=== PATIENT | male | born 1930 | race Caucasian/White ===

== ENCOUNTER 2018-04-05 05:32 | Day surgery (SDC) | payer OTHER, MEDICARE ==
[2018-04-05] MEDS ORDERED: LR 1,000 ML IV ONE (05:43)
[2018-04-05] MEDS ORDERED: OXYMETAZOLINE 30 ML NASAL SPRAY EACHNARE PRN (06:08)
[2018-04-05] MEDS ORDERED: AMPICILLIN/SULBACTAM 3 GM in NS 100 ML IV ONE (06:15)
[2018-04-05] MEDS ORDERED: OXYMETAZOLINE 30 ML NASAL SPRAY ONE (06:25)
[2018-04-05] MEDS ORDERED: BACITRACIN ZINC 14.2 GM OINTTUBE TP ONE (06:25)
[2018-04-05] MEDS ORDERED: BUPIVACAINE 0.5% 30 ML SDV ONE (06:25)
[2018-04-05] MEDS ORDERED: CHLORHEXIDINE GLUCONATE 15 ML UDL ONE (06:26)
[2018-04-05] MEDS ORDERED: LIDO/EPI 2% **for epidural** 20 ML SDV ONE (06:26)
[2018-04-05] MEDS ORDERED: EPINEPHrine 1 MG/ML INJ ONE (06:26)
[2018-04-05] MEDS ORDERED: MINERAL OIL 10 ML VIAL ONE (06:26)
[2018-04-05 06:32] LABS: PLATELET COUNT 212 10^3/uL (150-400)
--- NOTE | 2018-04-05 06:58 | PDHPUP ---
History & Physical Update H&P update statement: This history and physical update is based on an assessment of the patient which was completed after admission or registration (within 24 hours), but prior to the surgery/procedure. H&P update: no change in patient's condition since H&P completed (no change)
--- NOTE | 2018-04-05 07:06 | PDANEPAE ---
ANE History of Present Illness Patient presents for surgery ANE Past Medical History - Cardiovascular History Hx Hypertension: Yes Hx Arrhythmias: No Hx Chest Pain: No Hx Coronary Artery / Peripheral Vascular Disease: No Hx CHF / Valvular Disease: No Hx Palpitations: No - Pulmonary History Hx COPD: No Hx Asthma/Reactive Airway Disease: No Hx Recent Upper Respiratory Infection: No Hx Oxygen in Use at Home: No Hx Sleep Apnea: No Sleep Apnea Screening Result - Last Documented: Positive - Neurologic History Hx Cerebrovascular Accident: No Hx Seizures: No Hx Dementia: No - Endocrine History Hx Diabetes: No - Renal History Hx Renal Disorders: Yes Renal History Comment: BPH - Liver History Hx Hepatic Disorders: No - Neurological & Psychiatric Hx Hx Neurological and Psychiatric Disorders: No - Cancer History Hx Cancer: Yes Cancer History Comment: SKIN - Congenital Disorder History Hx Congenital Disorders: No - GI History Gastrointestinal History Comment: HX OF POLYPS - Other Health History Other Health History: MACULAR DEGENERATION - Chronic Pain History Chronic Pain: No - Surgical History Prior Surgeries: GISSELL CATARACT 11/2017. PARTIAL COLECTOMY WITH APPY. T & A. MOH 'S PROCEDURE LT SHLDR ANE Review of Systems Review of Systems: - Exercise capacity METS (RN): 5 METS ANE Patient History - Allergies Allergies/Adverse Reactions: No Allergies [NKDA] Allergy (Verified 08/16/16 00:51) - Home Medications Home medications: home medication list seen and reviewed Home Medications: Furosemide [Lasix 20 MG (*)] 20 mg PO DAILY06 09/01/12 [Last Taken 04/04/18] Metoprolol Tartrate [Lopressor 50 mg (*)] PO BID 09/01/12 [Last Taken 04/05/18] Simvastatin [Zocor 20 mg] 20 mg PO HS 09/01/12 [Last Taken 04/04/18] Finasteride HS 03/17/18 [Last Taken 04/04/18] - NPO status NPO Status: no food or drink >8 hours NPO Since - Liquids (Date): 04/05/18 NPO Since - Liquids (Time): 04:30 NPO Since - Solids (Date): 04/04/18 NPO Since - Solids (Time): 19:00 - Smoking Hx Smoking Status: Former smoker ANE Labs/Vital Signs - Labs Result Diagrams: 04/05/18 06:22 - Vital Signs Blood Pressure: 157/84 Heart Rate: 76 Respiratory Rate: 18 O2 Sat (%): 95 Height: 175.26 cm Weight: 70.307 kg ANE Physical Exam - Airway Neck exam: decreased ROM Mallampati Score: Class 1 - Pulmonary Pulmonary: no respiratory distress - Cardiovascular Cardiovascular: regular rate and rhythym - ASA Status ASA Status: II ANE Anesthesia Plan Anesthesia Plan: general endotracheal anesthesia (RBA discussed)
[2018-04-05] MEDS ORDERED: ONDANSETRON 4 MG/2 ML VIAL ONE (07:14)
[2018-04-05] MEDS ORDERED: DEXAMETHASONE 4 MG/ML VIAL ONE (07:14)
[2018-04-05] MEDS ORDERED: PROPOFOL 200 MG/20 ML VIAL ONE ×2 (07:14→08:22)
[2018-04-05] MEDS ORDERED: fentaNYL 100 MCG/2 ML INJ ONE ×2 (07:14→07:45)
[2018-04-05] MEDS ORDERED: LIDOCAINE 2% 5 ML SDV ONE ×2 (07:14)
--- NOTE | 2018-04-05 07:24 | POSTOPPROG ---
Post Op Note Date of Operation: 04/05/18 Surgeon: Robin Lyles Automatic Gluing Machine Operator: none Anesthesiologist: Jonah Danielson Anesthesia: GET(General Endotracheal) (nasal intubation) Pre-op Diagnosis: Palatal Odontogenic keratocyst Post-op Diagnosis: Same and preoperative diagnosis Indication: removal of benign maxillary lesion Procedure: Enucleation and peripheral curragate of a palatal [place] with bone graft Findings: none Inf/Abcess present in the surg proc area at time of surgery?: No EBL: Minimal Total fluids administered: 1L Complications: none Specimen(s): Maxillary palatal cyst sent for biopsy
[2018-04-05] MEDS ORDERED: METHYLENE BLUE 0.5% 50 MG/10 ML AMP ONE (07:25)
[2018-04-05] MEDS ORDERED: PHENYLEPHRINE HCL 100 MCG/ML SYR ONE (07:58)
[2018-04-05] MEDS: BACITRACIN 50,000 UNITS/10 ML SYR IRR ONE ×2 (08:09→09:43)
[2018-04-05] MEDS: POLYMYXIN B SULFATE 500,000 UNIT/10 ML SYR IRR ONE ×2 (08:10→09:42)
[2018-04-05] MEDS ORDERED: epHEDrine SULFATE 10 MG/ML SYR ONE (08:22)
[2018-04-05] MEDS ORDERED: BACITRACIN 50,000 UNITS/10 ML SYR IRR ONE (09:25)
[2018-04-05] MEDS ORDERED: POLYMYXIN B SULFATE 500,000 UNIT/10 ML SYR IRR ONE (09:25)
[2018-04-05] MEDS ORDERED: LR 500 ML IV PRN (09:38)
[2018-04-05] MEDS ORDERED: NALOXONE HCL 0.4 MG/ML INJ IVP PRN (09:38)
[2018-04-05] MEDS ORDERED: ONDANSETRON 4 MG/2 ML VIAL IVP PRN (09:38)
[2018-04-05] MEDS ORDERED: fentaNYL 100 MCG/2 ML INJ IVP PRN (09:38)
--- NOTE | 2018-04-05 10:06 | POSTANESTH ---
Post Anesthetic Evaluation Cardiovascular Status: Similar to Pre-Op Cond Respiratory Status: Similar to Pre-op Cond. Level of Consciousness/Mental Status: Alert and Oriented Pain Control: Adequate, Prn Tx Ordered Nausea/Vomiting Control: Adequate, Prn Tx Ordered Complications Possibly Related to Anesthesia: None Noted
[2018-04-05 11:02] VITALS: BP 133/76
--- NOTE | 2018-04-05 11:59 | GOP ---
[f rep st] OPERATIVE REPORT DATE OF OPERATION: 04/05/2018 SURGEON: Robin Lyles DDS ANESTHESIA: General nasotracheal anesthesia. 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 POSTOPERATIVE DIAGNOSIS: Maxillary palatal odontogenic keratocyst. PROCEDURE PERFORMED: 1. Enucleation of a maxillary odontogenic keratocyst with peripheral ostectomy. 2. Bone graft of maxillary cystic cavity with xenograft and allograft. FINDINGS: INDICATIONS: The patient is an 87-year-old male, who previously had a maxillary odontogenic keratocyst biopsied 1 year ago. The cyst has since been decompressed for 1 year. It was determined that enucleation, peripheral ostectomy, and bone grafting was necessary. The patient was seen in the clinic last week where verbal and written consent was obtained as well as discussion of the risks, benefits, complications of the procedure. The patient presented to the OR today n.p.o. and with an escort. DESCRIPTION OF PROCEDURE: The patient was brought into the OR and transferred onto the operating room table. Following successful nasotracheal intubation, the patient was prepped and draped in a normal sterile fashion. Chlorhexidine mouth rinse was performed. 5 cc of 2% lidocaine with 1:100,000 epinephrine was infiltrated into the maxillary, palatal, and buccal mucosa. A #15 blade was used to make a sulcular incision from tooth #3 to #14. Subperiosteal dissection was performed, and the palatal mucosa was dissected free from the cystic lining. The nasopalatine nerve was intentionally transected and cauterized. The previous existing grommet in the maxillary palatal mucosa was removed. Subperiosteal dissection was performed to dissect the cyst off the surrounding maxillary palatal bone and nasal mucosa. No tear was noted in the nasal mucosa. The cystic cavity was painted with methylene blue and peripheral ostectomy was performed with a 3 mm round allison bur under irrigation. Next, the allograft and xenograft were rehydrated with a bacitracin polymyxin mixture. The exposed nasal mucosa was covered with HeliTape and Mem-Debra collagen membrane. Bone graft material was packed into the cystic cavity, and the palatal aspect of the bone graft was covered with the Mem-Debra collagen membrane and HeliTape over the palatal fistula where the maxillary grommet was previously in place. The full-thickness mucoperiosteal flap was reapproximated with a 3-0 chromic interrupted suture. Throat screen and bite block were removed. An additional 5 cc of 2% lidocaine and 1:100,000 epinephrine was infiltrated into the maxillary palate and buccal mucosa. The patient was allowed to awake from anesthesia and was transferred to the PACU in stable condition. DISPOSITION: The patient will be discharged home today. He will follow up next week for his postoperative appointment. I will await confirmation of the biopsy from the Pathology Department. Postoperative prescriptions were given to the patient at his clinic appointment last week. /[id number]/MODL MTDD
== END 2018-04-05 11:00 | disposition home or self-care (01) ==
LOC: UNDOADMOB 05:32 → FSGY 05:32 → F3E 05:32 → EDSTATUS 07:15 → F3E 08:42 → F1N 08:42 → UNDODISOB 11:00 → FSGY 11:00 → UNDODISOB 11:13
PROVIDERS: ATTEND Dentist Oral and Maxillofacial Surgery
DX: D16.4 Benign neoplasm of bones of skull and face (principal); I10 Essential (primary) hypertension; E78.5 Hyperlipidemia, unspecified; N40.1 Benign prostatic hyperplasia with lower urinary tract symptoms; R97.20 Elevated prostate specific antigen [PSA]; R35.1 Nocturia; R39.198 Other difficulties with micturition; R33.9 Retention of urine, unspecified; Z87.891 Personal history of nicotine dependence; Z82.49 Family history of ischemic heart disease and other diseases of the circulatory system
CPT/HCPCS: C1762; C1763; J0171; J0295; J1100; J2370; J2405; J2704; J3010; Q9968